=== PATIENT | male | born 1990 | race Caucasian/White ===

== ENCOUNTER 2019-12-12 08:29 | Emergency (ER) | payer OTHER ==
[2019-12-12] MEDS ORDERED: Acetaminophen 500 MG TAB ONE (08:46)
[2019-12-12] MEDS ORDERED: Diazepam 5 MG TAB ONE (09:33)
== END 2019-12-12 10:56 | disposition home or self-care (01) ==
LOC: EEVIPCON 08:29 → ERS 08:29
DX: M54.6 Pain in thoracic spine (principal); X50.0XXA Overexertion from strenuous movement or load, initial encounter; Y99.0 Civilian activity done for income or pay
CPT/HCPCS: 99283